=== PATIENT | female | born 1980 | race African-American/Black ===

== ENCOUNTER 2020-01-28 07:10 | Emergency (ER) | payer SELFPAY ==
[~2020-01-28] VITALS: Ht 162.6 cm; Wt 65.8 kg
--- NOTE | 2020-01-28 07:10 | NUR ---
BIB RA 59,(+) ETOH BREATH,VS W/I NORMAL LIMITS,SENT TO ER BED 11,MONITORED,SIDE RAILS UP,HOB ELEVATED,AWAITING MD [place]
--- NOTE | 2020-01-28 07:12 | NUR ---
PIV ESTABLISHED,BLOOD DRAWN FOR LABS
[2020-01-28] MEDS ORDERED: IV NS 0.9% 1,000 ML BAG IV ONE (07:30)
[2020-01-28 07:34] LABS: BASOPHILS % (AUTO) 0.8 % (0.0-2.0); EOSINOPHILS % (AUTO) 1.3 % (0.0-6.0); HEMATOCRIT 44 % (33-45); HEMOGLOBIN 14.6 g/dL (11.5-14.8); LYMPHOCYTES # (AUTO) 2.2 /CMM (0.8-4.8); LYMPHOCYTES % (AUTO) 42.6 % (20.0-44.0); MEAN CORPUSCULAR HGB CONC 33 g/dl (31.0-36.0); MEAN CORPUSCULAR VOLUME 98 fL (82-100); MONOCYTES # (AUTO) 0.5 /CMM (0.1-1.30); MONOCYTES % (AUTO) 9.7 % (2.0-12.0); NEUTROPHILS # (AUTO) 2.4 /CMM (1.8-8.9); NEUTROPHILS % (AUTO) 45.6 % (43.0-81.0); PLATELET COUNT (AUTO) 292 /CMM (150-450); RED BLOOD CELL COUNT(AUTO) 4.52 MIL/uL (4.0-5.2); WHITE BLOOD COUNT (AUTO) 5.3 K/uL (4.3-11.0)
[2020-01-28 07:49] LABS: CALCIUM, SERUM 8.4 mg/dL (8.5-10.1); CREATININE 1.1 mg/dL (0.6-1.3); POTASSIUM 3.9 mmol/L (3.5-5.1)
--- NOTE | 2020-01-28 07:52 | NUR ---
PATIENT WAS AGGRESSIVE, TRYING TO PULL OUT IV LINE. STOOD UP HER BED AND TRIED TO WALK OUT ED WITH UNSTEADY GAIT. MD AWARE, ORDERED RESTRAINT FOR PATIENT.
[2020-01-28 08:01] LABS: ALBUMIN 3.5 g/dL (3.4-5.0); BILIRUBIN,TOTAL 0.1 mg/dL (0.2-1.0); TOTAL PROTEIN, SERUM 7.8 g/dL (6.4-8.2)
[2020-01-28 08:05] LABS: SALICYLATE 1.9 mg/dL (2.8-20.0)
--- NOTE | 2020-01-28 08:13 | NUR ---
PATIENT IN BED, ON BUE RESTRAINTS. PATIENT STILL SHOUTING, RESTLESS AND AGGRESSIVE TOWARDS STAFF. CMS CHECK DONE. GOOD CIRCULATION NOTED, NO SKIN BREAKDOWN NOTED, PATIENT ABLE TO MOVE WRIST. GOOD CAPILLARY REFILL NOTED.
--- NOTE | 2020-01-28 08:27 | NUR ---
PATIENT IN BED, ON BUE RESTRAINTS. PATIENT STILL RESTLESS. CMS CHECK DONE. GOOD CIRCULATION NOTED, NO SKIN BREAKDOWN NOTED, PATIENT ABLE TO MOVE WRIST. GOOD CAPILLARY REFILL NOTED.
--- NOTE | 2020-01-28 08:34 | NUR ---
PATIENT APPEARS CALM AND COOPERATING. ABLE TO SPEAK TO BOYFRIEND. UNKNOWN ETA. REMOVED RESTRAINTS. WILL CONTINUE TO MONITOR. [facility] CHECK DONE.
--- NOTE | 2020-01-28 09:23 | NUR ---
IV removed. Catheter intact and site benign. Pressure and 4x4 applied to site. No bleeding noted. Patient discharged to home in stable condition. Written and verbal after care instructions given. Patient verbalizes understanding of instruction. Picked up by boyfriend waiting in waiting room.
[2020-01-28 09:40] VITALS: BP 112/70
== END 2020-01-28 09:25 | disposition home or self-care (01) ==
LOC: ER 07:13
DX: F10.129 Alcohol abuse with intoxication, unspecified (principal); Y90.8 Blood alcohol level of 240 mg/100 ml or more
CPT/HCPCS: 36415; 80048; 80076; 80305; 80307; 80329; 85025; 96360; 99283; G0480; J7030